=== PATIENT | female | born 1940 | race Caucasian/White ===

== ENCOUNTER 2016-05-24 14:03 | Emergency (ER) | payer MEDICARE ==
[~2016-05-24 14:03] MED LIST: AMLO5TAB2 PO; ATOR20TA PO; BENZ0.5T3 PO; HYDR-4003 PO; LISI-571 PO; LORA0.5T PO; NYST15CR TP; POLY17PO6 PO; RISP0.5T4 PO; RISP1TAB90 PO; SERT100T9 PO
[2016-05-24 14:06] VITALS: BP 130/90; PULSE 99; RESP 16; O2SAT 96
--- NOTE | 2016-05-24 16:15 | ED.REPORT ---
HPI-General Illness Date of Service May 24, 2016 ED Provider: Marcelo Araujo MD Pt is a 76 y.o. female who presents to the ED accompanied by her caregiver c/o chest pain. Upon arrival to the ED pt states chest pain has resolved. Per caregiver, she brought the pt in for altered mental status and states that the pt has become increasingly unstable, confused, and incompetent. Caregiver also states that pt was having hallucinations and is on "a lot" of psych medications. When pt is asked where she is she staes "third floor of [facility] Pt currently denies SI and HI. Nursing Notes Stated Complaint: CHEST PAIN/OCD Chief Complaint: General Complaint Nursing Notes Reviewed: Yes Allergies: Coded Allergies: cortisone (Verified Allergy, Severe, renal failure, 02/25/16) amoxicillin (Verified Allergy, Intermediate, stomach pain, 02/25/16) codeine (Verified Allergy, Intermediate, stomach pain, 02/25/16) erythromycin base (Verified Adverse Reaction, Severe, stomach pain , 03/04) Uncoded Allergies: SODIUM PENTATHOL (Allergy, Severe, veins breakdown, 10/04/15) Scheduled Amlodipine (Amlodipine) 5 Mg Tablet 5 MG PO DAILY Atorvastatin (Lipitor) 20 Mg Tablet 20 MG PO HS Benztropine Mesylate (Benztropine Mesylate) 0.5 Mg Tablet 0.5 MG PO BID Lisinopril (Lisinopril) 5 Mg Tablet 10 MG PO DAILY Nystatin/Triamcin (Nystatin-Triamcinolone Cream) 15 Gm Cream..g. 15 GM TP BID Risperidone (Risperidone) 0.5 Mg Tablet 0.5-1 MG PO HS Risperidone (Risperdal) 1 Mg Tablet 1 MG PO HS Sertraline HCl (Sertraline) 100 Mg Tablet 200 MG PO DAILY Scheduled PRN Hydrocodone-Acetaminophen 5-325 mg (Hydrocodone-Acetaminophen 5-325 mg) 1 Each Tablet 0.5-1 TABLET PO TID PRN PRN For Pain Lorazepam (Lorazepam) 0.5 Mg Tablet 0.5 MG PO DAILY PRN PRN For Anxiety or Agitation Polyethylene Glycol 3350 (Miralax) 17 Gm Powd.pack 17 GM PO DAILY PRN PRN For Constipation General Time Seen by MD: 16:08 Chief Complaint Altered mental status, Chest pain Hx Obtained From: Patient Unable to Obtain Hx: Patient condition, Mental status Arrived By: Ambulance Sudden in Onset?: Yes Onset Occurred: Just prior to arrival Location: : Chest Quality: Painful Severity: Current: No pain currently Severity: Maximum: Moderate Past Medical History Past Medical History Notes: Admit for chest pain with negative workup September 2015 Past Medical History history of OCD and anxiety borderline diabetic Obesity Hypertension Hypothyroidism Reports: GERD, Hyperlipidemia Past Surgical History History of oral surgery Reports: Appendectomy, Tonsillectomy Smoking History Former Smoker Social History Other Social History: Good social support, , Local resident Ambulatory Status Walker Review of Systems Unable to Obtain ROS Patient condition, Mental status Full Review of Systems Cardiovascular: Reports: Chest pain Psychiatric: Reports: Change mental status, Confusion, Hallucinations, visual, Denies: Homicidal ideation, Suicidal ideation Complete sys rev & neg: except as marked. Physical Exam Vital Signs Vital Signs Date Time Temp Pulse Resp B/P Pulse Ox O2 Delivery O2 Flow Rate FiO2 05/24/16 19:23 92 16 138/88 97 Room Air 05/24/16 14:06 36.6 99 16 130/90 96 Room Air General/Constitutional: Awake, No acute distress, Well appearing, Well developed, Well hydrated, Well nourished, Not toxic appearing Respiratory / Chest: Atraumatic, Breath sounds NL, Breath sounds = bilat, No respiratory distress, No rales, No rhonchi, No wheezing, No retractions, No stridor Cardiovascular: Heart rate NL, Regular rhythm, Heart sounds NL, No gallop, No murmurs, No rubs, Peripheral circulation NL No lower extremity edema Abdomen: Atraumatic, Soft, Non-tender, No guarding, No rebound, No distention Mental Status: Positive: Confused, Disoriented to place, Disoriented to time Interpretation & Diagnostics Lab Results Interpretation Result Diagram: 05/24/16 1605 05/24/16 1605 Test 05/24/16 16:05 White Blood Count 10.4th/mm3 (3.8-10.1) Red Blood Count 4.80mil/mm3 (3.90-5.20) Hemoglobin 12.6g/dL (12.0-15.6) Hematocrit 39.2% (35.0-46.0) Mean Corpuscular Volume 81.7fL (81-100) Mean Corpuscular Hemoglobin 26.3pg (27.0-35.0) Mean Corpuscular Hemoglobin Concent 32.1% (32.0-37.0) Red Cell Distribution Width 14.9% (12.3-15.4) Platelet Count 205bil/L (150-400) Neutrophils (%) (Auto) 80.7% (40-74) Lymphocytes (%) (Auto) 12.9% (14-46) Monocytes (%) (Auto) 5.2% (4-12) Eosinophils (%) (Auto) 0.8% (0-5) Basophils (%) (Auto) 0.3% (0-3) Sodium Level 139mEq/L (134-144) Potassium Level 4.2mEq/L (3.5-5.2) Chloride Level 102mEq/L (97-108) Carbon Dioxide Level 19mmol/L (18-29) Blood Urea Nitrogen 18mg/dL (8-27) Creatinine 0.83mg/dL (0.57-1.00) Estimat Glomerular Filtration Rate 95mL/min (>59) Glucose Level 105mg/dL (60-99) Lactic Acid Level 2.0mmol/L (0.4-2.0) Calcium Level 9.0mg/dL (8.5-10.1) Magnesium Level 2.0mg/dL (1.6-2.6) Total Bilirubin 0.3mg/dL (0.0-1.2) Aspartate Amino Transf (AST/SGOT) 14U/L (0-50) Alanine Aminotransferase (ALT/SGPT) 11U/L (0-32) Alkaline Phosphatase 88U/L (25-165) Troponin T < 0.010ug/L (0.0-0.011) Total Protein 7.0g/dL (6.4-8.4) Albumin 4.0g/dL (3.4-5.0) Alcohol, Quantitative < 10mg/dL (0-10) General Lab Results Interp 1: Labs reviewed and NL X-Ray Chest Interpretation Chest Xray Interpretation: IMPRESSION: 1. Indistinct nodular opacity peripherally in the right midlung zone is nonspecific and may represent an infectious or inflammatory process versus a pulmonary nodule. Recommend a short term followup study when clinically feasible. 2. Elevation of the right hemidiaphragm with probable atelectasis in the medial right lung base. Dictated by: Jus Lizarraga M.D. on 05/24/2016 at 17:05 Approved by: Jus Lizarraga M.D. on 05/24/2016 at 17:06 CT Head Interpretation IMPRESSION: 1. No acute intracranial abnormality. 2. Mild cerebral volume loss and chronic white matter small vessel ischemic changes. Dictated by: Jus Lizarraga M.D. on 05/24/2016 at 17:21 Approved by: Jus Lizarraga M.D. on 05/24/2016 at 17:22 Re-Eval/Medical Decision Med Decision/Clinical Course 76-year-old female history dementia on multiple antipsychotics presenting with altered mental status brought in by caregiver for possible altered mental status today. Patient has been like this on and off for the past year per caregiver. No other associated symptoms. Labs are unremarkable. Vital signs stable. CT brain no acute pathology. No identifiable medical cause for her altered mental status. On further discussion with family patient has been dealing with this for 1 year. section gang worker evaluated patient and thought stable for discharge home from their standpoint and discussed with family and gave multiple resources for dementia. I see no acute indication for hospitalization. Return precautions given. Source of Hx: Old records Time of Eval: 19:10 Re-Evaluation/Progress Note: Pt rechecked. Discussed plan for discharge with caregiver, she understands and agrees with plan. Counseled Regarding: Diagnosis, Lab results, Need for follow-up, When/why to return to ED Discharge & Departure Primary Impression: Altered mental status Altered mental status type: unspecified Qualified Code: R41.82 - Altered mental status, unspecified Additional Impression: Hallucination Disposition: Home Discharge Condition All VS Reviewed: Yes Condition: Stable Additional Instructions: You were seen today for altered mental status and hallucinations. I recommend you follow-up with the resources provided by the rn social services and also with your primary care provider in 1-2 days. Seek care if you experience vomiting, fever, chest pain, or any new or worsening symptoms. Referrals: Chata Cowan MD (PCP) Scribe Attestation Portions of this note were transcribed by Matty Mcrae. I, Dr. Araujo personally performed the history, physical exam and medical decision-making; I reviewed and confirmed the accuracy of the information in the transcribed note. Signed by: Dolly Key, 05/24/16 and 191. copies to: Chata Cowan MD, Ben M MD May 24, 2016 16:15 MATTY MCRAE May 24, 2016 16:25
[2016-05-24 16:17] LABS: BASOPHILS % (AUTO) 0.3 % (0-3); EOSINOPHILS % (AUTO) 0.8 % (0-5); MONOCYTES % (AUTO) 5.2 % (4-12); Mean Corpuscular Hemoglobin 26.3 pg (27.0-35.0); Mean Corpuscular Volume 81.7 fL (81-100); NEUTROPHILS % (AUTO) 80.7 % (40-74); Platelet Count 205 bil/L (150-400)
[2016-05-24 16:41] LABS: TROPONIN T < 0.010 ug/L (0.0-0.011)
--- NOTE | 2016-05-24 17:08 | DRSVH ---
PROCEDURE: X-RAY CHEST ONE VIEW, PORTABLE ([id number]) INDICATIONS: CONFUSION TECHNIQUE: One view of the chest was acquired. COMPARISON: Merged With [facility], CR, XR CHEST 1VW (PORTABLE), 10/03/2015, 18:36. FINDINGS: Surgical changes and devices: None. Lungs and pleura: No pleural effusions or pneumothorax. There is elevation of the right hemidiaphra gm redemonstrated. A few linear right basilar opacities likely represent atelectasis. There is an i ndistinct nodular opacity peripherally in the right midlung zone. Mediastinum: Mediastinal contours appear unchanged. Heart size is normal. Bones and chest wall: No suspicious bony lesions. Overlying soft tissues appear unremarkable. IMPRESSION: 1. Indistinct nodular opacity peripherally in the right midlung zone is nonspecific and may represen t an infectious or inflammatory process versus a pulmonary nodule. Recommend a short term followup s tudy when clinically feasible. 2. Elevation of the right hemidiaphragm with probable atelectasis in the medial right lung base. Dictated by: Jus Lizarraga M.D. on 05/24/2016 at 17:05 Approved by: Jus Lizarraga M.D. on 05/24/2016 at 17:06
--- NOTE | 2016-05-24 17:23 | DRSVH ---
PROCEDURE: CT BRAIN WITHOUT CONTRAST ([id number]) INDICATIONS: altered mental status TECHNIQUE: Noncontrast 4.5 mm thick angled axial sections acquired from the foramen magnum to the vertex, with c oronal reformats. COMPARISON: [facility], CT, BRAIN W/O CONTRAST, 07/27/2011, 16:40. FINDINGS: Image quality: Excellent. CSF spaces: Basal cisterns are patent. No extra-axial fluid collections. The ventricles are symmet anne in size. There is mild cerebral volume loss, with resultant ventricular and sulcal prominence. Brain: No intracranial hemorrhage, mass, or mass effect. There are scattered subcortical, periven tricular and deep white matter hypodensities consistent with mild chronic small vessel ischemic martinez es. There is intracranial internal carotid artery atherosclerosis. Skull and face: Calvarium and visualized facial bones appear intact, without suspicious lesions. Sinuses: Visualized sinuses and mastoids are clear. IMPRESSION: 1. No acute intracranial abnormality. 2. Mild cerebral volume loss and chronic white matter small vessel ischemic changes. Dictated by: Jus Lizarraga M.D. on 05/24/2016 at 17:21 Approved by: Jus Lizarraga M.D. on 05/24/2016 at 17:22
[2016-05-24 19:23] VITALS: BP 138/88; PULSE 92; RESP 16; O2SAT 97
== END 2016-05-24 19:24 | disposition home or self-care (01) ==
LOC: SED 14:03
DX: R41.82 Altered mental status, unspecified (principal); R44.3 Hallucinations, unspecified; R41.0 Disorientation, unspecified; I10 Essential (primary) hypertension; K21.9 Gastro-esophageal reflux disease without esophagitis; E78.5 Hyperlipidemia, unspecified; E03.9 Hypothyroidism, unspecified; F03.90 Unspecified dementia, unspecified severity, without behavioral disturbance, psychotic disturbance, mood disturbance, and anxiety; Z87.891 Personal history of nicotine dependence; Z88.1 Allergy status to other antibiotic agents; Z88.5 Allergy status to narcotic agent; Z88.8 Allergy status to other drugs, medicaments and biological substances
CPT/HCPCS: 36415; 70450; 71010; 80053; 81002; 83605; 83735; 84484; 85025; 90791; 93005; 99285; G0480

== ENCOUNTER 2016-05-27 07:12 | Emergency (ER) | payer MEDICARE ==
--- NOTE | 2016-05-27 07:15 | ED.REPORT ---
HPI-General Illness Date of Service May 27, 2016 ED Provider: Constantino Dill MD 76 year old female with a history of hypothyroidism and HTN presents to the ER via EMS from her home, accompanied by her son due to frequent falls. She denies chest pain, shortness of breath, fever, nausea, vomiting, and diarrhea. Son reports that the fire department was called twice during the night for patient falls. On their second call to the patient's home she was found down slumped against the bathroom door. Patient lives independently with her who is a poor reinspector due to his own underlying health problems, as such, the son expresses concern for patient's well-being and does not believe that she can be safely discharged home at this time. She was seen here in the ER four days ago for similar. Nursing Notes Stated Complaint: FREQUENT FALLS Nursing Notes Reviewed: Yes Allergies: Coded Allergies: cortisone (Verified Allergy, Severe, renal failure, 05/27/16) amoxicillin (Verified Allergy, Intermediate, stomach pain, 05/27/16) codeine (Verified Allergy, Intermediate, stomach pain, 05/27/16) erythromycin base (Verified Adverse Reaction, Severe, stomach pain , ) Uncoded Allergies: SODIUM PENTATHOL (Allergy, Severe, veins breakdown, 10/04/15) Scheduled Amlodipine (Amlodipine) 5 Mg Tablet 5 MG PO DAILY Atorvastatin (Lipitor) 20 Mg Tablet 20 MG PO HS Benztropine Mesylate (Benztropine Mesylate) 0.5 Mg Tablet 0.5 MG PO BID Lisinopril (Lisinopril) 5 Mg Tablet 10 MG PO DAILY Nystatin/Triamcin (Nystatin-Triamcinolone Cream) 15 Gm Cream..g. 15 GM TP BID Risperidone (Risperidone) 0.5 Mg Tablet 0.5-1 MG PO HS Risperidone (Risperdal) 1 Mg Tablet 1 MG PO HS Sertraline HCl (Sertraline) 100 Mg Tablet 200 MG PO DAILY Scheduled PRN Hydrocodone-Acetaminophen 5-325 mg (Hydrocodone-Acetaminophen 5-325 mg) 1 Each Tablet 0.5-1 TABLET PO TID PRN PRN For Pain Lorazepam (Lorazepam) 0.5 Mg Tablet 0.5 MG PO DAILY PRN PRN For Anxiety or Agitation Polyethylene Glycol 3350 (Miralax) 17 Gm Powd.pack 17 GM PO DAILY PRN PRN For Constipation General Time Seen by MD: 07:15 Chief Complaint Other (Falls) Hx Obtained From: Patient Arrived By: Ambulance Sudden in Onset?: No Onset Occurred: Just prior to arrival Symptom Duration: Since onset Caused by: Accidental, Fall on ground Context: Occurred at: Home injury Associated with: Denies: Chest pain, Fever, Loss of consciousness, Nausea, Vomiting Past Medical History Past Medical History Notes: Admit for chest pain with negative workup September 2015 Past Medical History history of OCD and anxiety borderline diabetic Obesity Hypertension Hypothyroidism Reports: GERD, Hyperlipidemia Past Surgical History History of oral surgery Reports: Appendectomy, Tonsillectomy Smoking History Former Smoker Social History Other Social History: Good social support, , Local resident Ambulatory Status Walker Review of Systems Full Review of Systems Constitutional: Denies: Chills, Fever Respiratory: Denies: Shortness of breath Cardiovascular: Denies: Chest pain GI: Denies: Diarrhea, Nausea, Vomiting Musculoskeletal: Denies: Back pain, Extremity pain, Joint pain, Lumbar pain, Neck pain, Thoracic pain Neurologic: Denies: Headache, Syncope Complete sys rev & neg: except as marked. Physical Exam Vital Signs Vital Signs Date Time Temp Pulse Resp B/P Pulse Ox O2 Delivery O2 Flow Rate FiO2 05/27/16 07:21 37 96 24 146/71 98 Room Air Initial VS: Reviewed Head / Eyes: Atraumatic, Normocephalic Neck: Supple, Non-tender, Full range of motion Extremities: Vascular intact, Neuro intact, No swelling, No tenderness Skin: Warm, Dry, No cyanosis Neurologic: Alert, Oriented, Nonfocal General/Constitutional: Awake, Alert, Well developed, Well nourished Respiratory / Chest: Breath sounds NL, No respiratory distress, No rales, No rhonchi, No wheezing Cardiovascular: Heart rate NL, Regular rhythm, Heart sounds NL, Cap refill not delayed, Peripheral circulation NL Abdomen: Soft, No guarding, No rebound, No distention Tenderness/Guarding/Rebound: Positive: Tender diffuse Interpretation & Diagnostics Lab Results Interpretation Result Diagram: 05/27/16 0900 05/27/16 0900 Test 05/27/16 08:05 05/27/16 09:00 05/27/16 10:48 Hold Urine Received (Received) White Blood Count 9.8th/mm3 (3.8-10.1) Red Blood Count 4.32mil/mm3 (3.90-5.20) Hemoglobin 11.3g/dL (12.0-15.6) Hematocrit 35.5% (35.0-46.0) Mean Corpuscular Volume 82.2fL (81-100) Mean Corpuscular Hemoglobin 26.2pg (27.0-35.0) Mean Corpuscular Hemoglobin Concent 31.8% (32.0-37.0) Red Cell Distribution Width 14.9% (12.3-15.4) Platelet Count 170bil/L (150-400) Neutrophils (%) (Auto) 80.5% (40-74) Lymphocytes (%) (Auto) 11.6% (14-46) Monocytes (%) (Auto) 6.2% (4-12) Eosinophils (%) (Auto) 1.2% (0-5) Basophils (%) (Auto) 0.3% (0-3) Sodium Level 142mEq/L (134-144) Potassium Level 3.9mEq/L (3.5-5.2) Chloride Level 107mEq/L (97-108) Carbon Dioxide Level 22mmol/L (18-29) Blood Urea Nitrogen 23mg/dL (8-27) Creatinine 0.95mg/dL (0.57-1.00) Estimat Glomerular Filtration Rate 81mL/min (>59) Glucose Level 122mg/dL (60-99) Calcium Level 8.7mg/dL (8.5-10.1) Total Bilirubin 0.3mg/dL (0.0-1.2) Aspartate Amino Transf (AST/SGOT) 16U/L (0-50) Alanine Aminotransferase (ALT/SGPT) 12U/L (0-32) Alkaline Phosphatase 77U/L (25-165) Total Protein 6.2g/dL (6.4-8.4) Albumin 3.4g/dL (3.4-5.0) Hold Bhandari Top Tube Received (Received) Urine Color Straw (YELLOW) Urine Appearance Hazy (CLEAR,HAZY) Urine pH 5.5 (5.0-8.0) Urine Specific Kane 1.025 (1.003-1.035) Urine Protein Negativemg/dL (NEG,TRACE) Urine Glucose (UA) Negativemg/dL (NEGATIVE) Urine Ketones Negativemg/dL (NEGATIVE) Urine Occult Blood Small (NEGATIVE) Urine Nitrite Negative (NEGATIVE) Urine Bilirubin Negative (NEGATIVE) Urine Urobilinogen Normalmg/dL (NORMAL) Urine Leukocyte Esterase Small (NEGATIVE) Urine RBC 0-2/hpf (0-2) Urine WBC 6-10/hpf (0-5) Urine Epithelial Cells Occasional/hpf (NONE-MOD) Urine Crystals Amorphous urates (NONE Urine Bacteria None/hpf (NONE-FEW) Urine Hyaline Casts None/lpf (NONE) Urine Granular Casts None seen (NONE SEEN) Urine Waxy Casts None seen (NONE SEEN) Urine Red Blood Cell Casts None seen (NONE SEEN) Urine White Blood Cell Casts None seen (NONE SEEN) Urine Mucus None seen (None Seen) Urine Trichomonas None seen (NONE SEEN) Urine Yeast None (NONE SEEN) Urinalysis Comment None Urine Culture Reflexed Indicated X-Ray Interpretation Xray Interpretation: IMPRESSION: 1. The lateral view is limited. No definitive fracture. 2. 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 3. Calcific densities in pelvis are probably related to calcified uterine fibroids. Dictated by: Mercedes Coles M.D. on 05/27/2016 at 10:56 Approved by: Mercedes Coles M.D. on 05/27/2016 at 11:07 X-Ray Ordered: Pelvis, Hip left Interpretation / Wet Read by: Interpret - Radiologist Re-Eval/Medical Decision Med Decision/Clinical Course No overt abnormalities discovered to explain recent falls. Family is unable to care for the patient and therefore she will be transferred to [facility] for respite care. Source of Hx: Old records Consultation : Referral / Consult Name: Jessy Nielsen MD Consulted With: Primary care physician Call Returned at: 14:46 Note: Discussed patient case with Dr. Jazlyn Nielsen, air traffic control supervisor for Dr. Cowan. She will fax orders to [facility]. Counseled Regarding: Diagnosis, Lab results, Need for follow-up, When/why to return to ED Discharge & Departure Primary Impression: Falls Encounter type: initial encounter Qualified Code: W19.XXXA - Unspecified fall, initial encounter Disposition: Home Discharge Condition All VS Reviewed: Yes Condition: Stable Referrals: Chata Cowan MD (PCP) Scribe Attestation Portions of this note were transcribed by Dean Ric. I, Dr. Dill, personally performed the history, physical exam and medical decision-making; I reviewed and confirmed the accuracy of the information in the transcribed note. Signed by: Dolly Bahena, 05/27/2016 and 14:55 copies to: Chata Cowan MD, Kirk H MD May 27, 2016 07:15 DEAN HERNANDEZ May 27, 2016 08:05
[2016-05-27 07:21] VITALS: BP 146/71; PULSE 96; RESP 24; O2SAT 98
[2016-05-27 09:08] LABS: BASOPHILS % (AUTO) 0.3 % (0-3); EOSINOPHILS % (AUTO) 1.2 % (0-5); MONOCYTES % (AUTO) 6.2 % (4-12); Mean Corpuscular Hemoglobin 26.2 pg (27.0-35.0); Mean Corpuscular Volume 82.2 fL (81-100); NEUTROPHILS % (AUTO) 80.5 % (40-74); Platelet Count 170 bil/L (150-400)
[2016-05-27 11:07] LABS: APPEARANCE,URINE HAZY (CLEAR,HAZY); COLOR,URINE STRAW (YELLOW); OCCULT BLOOD,URINE SMALL (NEGATIVE); PH,URINE 5.5 (5.0-8.0); UROBILINOGEN,URINE NORMAL (NORMAL)
--- NOTE | 2016-05-27 11:09 | DRSVH ---
PROCEDURE: X-RAY PELVIS W/LAT HIP (LT) ([id number]) INDICATIONS: trauma TECHNIQUE: AP pelvis with lateral view(s) of the left hip(s). COMPARISON: None. FINDINGS: Bilateral view is suboptimal because of the patient's body habitus. Bones: No fractures or dislocations. Pelvic ring appears intact. No suspicious bony lesions. Ther e is moderate to severe left hip joint degeneration. Soft tissues: The visualized bowel gas pattern is normal. Foci calcifications in pelvis are noted. IMPRESSION: 1. The lateral view is limited. No definitive fracture. 2. 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 3. Calcific densities in pelvis are probably related to calcified uterine fibroids. Dictated by: Mercedes Coles M.D. on 05/27/2016 at 10:56 Approved by: Mercedes Coles M.D. on 05/27/2016 at 11:07
== END 2016-05-27 16:55 | disposition home or self-care (01) ==
LOC: EDBD 07:12 → EDUNIT# 07:12 → SED 07:12
DX: R29.6 Repeated falls (principal); W18.39XA Other fall on same level, initial encounter; Y93.89 Activity, other specified; Y92.002 Bathroom of unspecified non-institutional (private) residence as the place of occurrence of the external cause; Y99.8 Other external cause status; I10 Essential (primary) hypertension; K21.9 Gastro-esophageal reflux disease without esophagitis; E78.5 Hyperlipidemia, unspecified; E03.9 Hypothyroidism, unspecified; Z87.891 Personal history of nicotine dependence; Z88.1 Allergy status to other antibiotic agents; Z88.5 Allergy status to narcotic agent; Z88.8 Allergy status to other drugs, medicaments and biological substances